=== PATIENT | female | born 1980 | race African-American/Black ===

== ENCOUNTER 2017-11-13 17:37 | Emergency (ER) | payer BC ==
[~2017-11-13] VITALS: Ht 175.3 cm; Wt 125.6 kg
[2017-11-13 17:38] VITALS: Ht 175.3 cm; Wt 125.6 kg
[2017-11-13 18:23] LABS: BASOPHIL % 0.3 % (0-2); PLATELET COUNT 280 x10^3mcL (130-400)
[2017-11-13 18:24] LABS: RED CELL DISTRIBUTION WIDTH 17.1 % (11.5-14.5)
[2017-11-13 18:33] LABS: CALCIUM 8.7 mg/dL (8.5-10.1); CARBON DIOXIDE 31.8 mmol/L (21-32); CHLORIDE SERUM 105 mmol/L (98-107); CREATININE SERUM 0.8 mg/dL (0.6-1.0); GFR1 > 60 mL/min; GLUCOSE SERUM 99 mg/dL (74-106); POTASSIUM SERUM 3.9 mmol/L (3.5-5.1); SODIUM SERUM 140 mmol/L (136-145)
[2017-11-13 19:57] VITALS: BP 131/95
== END 2017-11-13 21:20 | disposition home or self-care (01) ==
LOC: ED 17:37
PROVIDERS: Emergency Medicine
DX: J98.01 Acute bronchospasm (principal); Z85.3 Personal history of malignant neoplasm of breast
CPT/HCPCS: 36415; 85378; J7030; J7613; J7644; Q9967